=== PATIENT | female | born 1960 | race Caucasian/White ===

== ENCOUNTER 2018-06-01 12:30 | Inpatient (IN) ==
[2018-06-01] MEDS ORDERED: Sod Chloride 0.9% Inj 1,000 ML IV.SIG ONE ×2 (13:34→15:48)
[2018-06-01] MEDS ORDERED: Ketorolac Inj 30 MG/ML (IVP) Vial IV.PUSH ONE (13:39)
--- NOTE | 2018-06-01 13:39 | ED ---
HPI General Chief complaint: Nausea/Vomiting/Diarrhea Stated complaint: vomiting/back pain/headache Source: patient Mode of arrival: ambulatory Limitations: no limitations History of Present Illness HPI narrative: 58yo F with PMH of DM, HTN presents to the ED with c/o left sided back pain radiating to left flank region for 3 days. Said she has been nauseous but did not vomit until yesterday. +Nonbloody diarrhea today. +Chills /tactile fever. Denies any chest pain, sob, dysuria, hematuria, fall, focal weakness or numbness. Related Data Home Medications Medication Instructions Recorded Confirmed atenolol 25 mg PO DAILY 06/01/18 06/01/18 citalopram 06/01/18 metformin 500 mg PO DAILY 06/01/18 06/01/18 Allergies Allergy/AdvReac Type Severity Reaction Status Date / Time No Known Allergies Allergy Unverified 06/01/18 12:37 Review of Systems ROS: all other systems reviewed are negative FOR[facility]LY [facility] Medical History Medical History Deep vein thrombosis (Acute) Diabetes (Acute) Dyslipidemia (Acute) Hypertension (Acute) Major depressive disorder (Acute) Surgical History Surgical History H/O tubal ligation (Acute) Family History Family History Other Hypertension Social History Social History Substance History: No History of Abuse Second Hand Smoke Exposure: No Smoking Status: Current every day smoker Tobacco Type: Cigarettes How Often Do You Have a Drink Containing Alcohol: Monthly or less Recent Travel in [facility] within the Last 8 Weeks: No Recent Out of Country Travel within the Last 8 Weeks: No Immunization History Tetanus Immunization: Unsure Hx Influenza Vaccine This Season: No Exam Narrative Exam Narrative: GENERAL: 58yo F in mild distress. SKIN: Focused skin assessment warm/dry. HEAD: Atraumatic. Normocephalic. EYES: Pupils equal and round. No scleral icterus. No injection or drainage. ENT: No nasal bleeding or discharge. Mucous membranes pink and moist. NECK: Trachea midline. No JVD. CARDIOVASCULAR: Regular rate and rhythm. No murmur appreciated. RESPIRATORY: No accessory muscle use. Clear to auscultation. Breath sounds equal bilaterally. GASTROINTESTINAL: Abdomen soft, non-tender, nondistended in all quadrant. Mild ttp left flank. No rebound tenderness or guarding. BACK: no midline thoracic or lumbar ttp. No CVA tenderness bilaterally. +TTP left paraspinal L4-5. MUSCULOSKELETAL: No obvious deformities. No clubbing. No cyanosis. No edema. NEUROLOGICAL: Awake and alert. No obvious cranial nerve deficits. Motor grossly within normal limits. Normal speech. PSYCHIATRIC: Appropriate mood and affect; insight and judgment normal. Course Initial Documented Vital Signs Temperature 99.9 F H 06/01/18 12:33 Pulse Rate 65 06/01/18 12:33 Respiratory Rate 18 06/01/18 12:33 Blood Pressure 132/59 L 06/01/18 12:33 Pulse Oximetry 98 06/01/18 12:33 Last Documented Vital Signs Temperature 98.7 F 06/02/18 04:00 Pulse Rate 91 H 06/02/18 04:00 Respiratory Rate 20 06/02/18 04:00 Blood Pressure 154/72 H 06/02/18 04:00 Pulse Oximetry 96 06/02/18 04:00 Medical Decision Making MDM Narrative Medical decision making narrative: 58yo F with nausea, vomiting, diarrhea as well as left back pain. Labs reviewed, no leukocytosis. Neutrophil 92.7%. H/ H normal. Bilirubin elevated at 1.9, likely from dehydration. Mild elevation or glucose at 217. BUN elevated at 25. Creatinine is elevated at 3.0. LFTs low. UA showed large blood. WBC 51-189. Pt given ceftriaxone. CT a/p showed slightly less than 2cm stone in left UVJ with moderate left hydronephrosis. Discussed with Dr. Olivares and accepted to his service for infected stone with obstructive uropathy and ANNE. Medical Screen Exam Complete: Yes Emergency Medical Condition: Yes Differential Diagnosis Differential Diagnosis: Musculoskeletal pain vs. nephrolithiasis vs. pyelonephritis vs. gastroenteritis Lab Data Result diagrams: 06/01/18 13:40 06/01/18 13:40 Lab Results 06/01/18 06/01/18 06/01/18 Range/Units 13:40 13:40 13:40 CBC w Diff Auto diff final WBC 5.9 (4.0-11.0) th/mm3 RBC 4.09 (4.00-5.30) mil/mm3 Hgb 12.5 (11.6-15.3) gm/dL Hct 37.2 (35.0-46.0) % MCV 91.0 (80.0-100.0) fL MCH 30.6 (27.0-34.0) pg MCHC 33.6 (32.0-36.0) % RDW 13.0 (11.6-17.2) % Plt Count 213 (150-450) th/mm3 MPV 8.3 (7.0-11.0) fL Neut % (Auto) 92.7 H (16.0-70.0) % Lymph % (Auto) 5.0 L (9.0-44.0) % [place] % (Auto) 0.7 (0.0-8.0) % Eos % (Auto) 0.1 (0.0-4.0) % Baso % (Auto) 1.5 (0.0-2.0) % Neut # (Auto) 5.5 (1.8-7.7) th/mm3 Lymph # (Auto) 0.3 L (1.0-4.8) th/mm3 [place] # (Auto) 0.0 (0.0-0.9) th/mm3 Eos # (Auto) 0.0 (0.0-0.4) th/mm3 Baso # (Auto) 0.1 (0.0-0.2) th/mm3 WBC Differential . Differential Comment . Sodium 134 L (136-145) meq/L Potassium 3.5 (3.5-5.1) meq/L Chloride 101 (98-107) meq/L Carbon Dioxide 19.4 L (21.0-32.0) meq/L Anion Gap 14 (5-15) meq/L BUN 25 H (7-18) mg/dL Creatinine 3.00 H (0.50-1.00) mg/dL Estimated GFR 16 L (>89) mL/min POC Glucose (68-110) mg/dl Random Glucose 217 H (74-106) mg/dL Calcium 9.1 (8.5-10.1) mg/dL Total Bilirubin 1.9 H (0.2-1.0) mg/dL AST 7 L (15-37) U/L ALT 9 L (10-53) U/L Alkaline Phosphatase 94 (45-117) U/L Total Protein 8.0 (6.4-8.2) g/dL Albumin 2.9 L (3.4-5.0) g/dL Lipase 91 (73-393) U/L Ur Collection Type Clean catch Urine Color Yellow (Yellw/Straw) Urine Clarity Cloudy H (Clear) Urine pH 6.0 (5.0-8.5) Ur Specific [place] 1.025 (1.002-1.035) Urine Protein 100 H (Neg-Trace) mg/dL Urine Glucose (UA) Negative (Negative) mg/dL Urine Ketones Trace H (Negative) mg/dL Urine Occult Blood Large H (Negative) Urine Nitrate Negative (Negative) Urine Bilirubin Negative (Negative) Urine Urobilinogen 4.0 H (Less than 2) mg/dL Ur Leukocyte Esterase Large H (Negative) Urine RBC 15-50 H (0-3) /hpf Urine WBC 51-189 H (0-5) /hpf Ur Squamous Epith Cells 6-10 H (0-5) /hpf Urine Bacteria Moderate H (None) /hpf Micro UA Comment Culture indicated Urine Culture Comments Culture indicated 06/01/18 Range/Units 20:16 CBC w Diff WBC (4.0-11.0) th/mm3 RBC (4.00-5.30) mil/mm3 Hgb (11.6-15.3) gm/dL Hct (35.0-46.0) % MCV (80.0-100.0) fL MCH (27.0-34.0) pg MCHC (32.0-36.0) % RDW (11.6-17.2) % Plt Count (150-450) th/mm3 MPV (7.0-11.0) fL Neut % (Auto) (16.0-70.0) % Lymph % (Auto) (9.0-44.0) % [place] % (Auto) (0.0-8.0) % Eos % (Auto) (0.0-4.0) % Baso % (Auto) (0.0-2.0) % Neut # (Auto) (1.8-7.7) th/mm3 Lymph # (Auto) (1.0-4.8) th/mm3 [place] # (Auto) (0.0-0.9) th/mm3 Eos # (Auto) (0.0-0.4) th/mm3 Baso # (Auto) (0.0-0.2) th/mm3 WBC Differential Differential Comment Sodium (136-145) meq/L Potassium (3.5-5.1) meq/L Chloride (98-107) meq/L Carbon Dioxide (21.0-32.0) meq/L Anion Gap (5-15) meq/L BUN (7-18) mg/dL Creatinine (0.50-1.00) mg/dL Estimated GFR (>89) mL/min POC Glucose 198 H (68-110) mg/dl Random Glucose (74-106) mg/dL Calcium (8.5-10.1) mg/dL Total Bilirubin (0.2-1.0) mg/dL AST (15-37) U/L ALT (10-53) U/L Alkaline Phosphatase (45-117) U/L Total Protein (6.4-8.2) g/dL Albumin (3.4-5.0) g/dL Lipase (73-393) U/L Ur Collection Type Urine Color (Yellw/Straw) Urine Clarity (Clear) Urine pH (5.0-8.5) Ur Specific [place] (1.002-1.035) Urine Protein (Neg-Trace) mg/dL Urine Glucose (UA) (Negative) mg/dL Urine Ketones (Negative) mg/dL Urine Occult Blood (Negative) Urine Nitrate (Negative) Urine Bilirubin (Negative) Urine Urobilinogen (Less than 2) mg/dL Ur Leukocyte Esterase (Negative) Urine RBC (0-3) /hpf Urine WBC (0-5) /hpf Ur Squamous Epith Cells (0-5) /hpf Urine Bacteria (None) /hpf Micro UA Comment Urine Culture Comments Imaging Data Radiologist's impression: Abdomen/Pelvis CT 06/01/18 13:33 CONCLUSION: Slightly less than 2 cm stone in the left ureteropelvic junction with moderate left hydronephrosis. Smaller stones elsewhere in the left kidney. Discharge Plan Discharge Disposition Patient Disposition: 30 Still Patient Discharge Details Diagnosis: Obstruction, uropathy Physicians Team ED Provider: Chery Cortez Attending Provider: Cuco Hadley Other Providers: Darnell Hastings Status ED Status: Left Department Discharge Information Discharge Date/Time: 06/01/18 17:53
[2018-06-01 13:46] LABS: Baso # (Auto) 0.1 th/mm3 (0.0-0.2); Baso % (Auto) 1.5 % (0.0-2.0); Clarity,Urine Cloudy (Clear); Color,Urine Yellow (Yellw/Straw); Eos % (Auto) 0.1 % (0.0-4.0); Glucose,Urine (UA) Negative (Negative); Hematocrit 37.2 % (35.0-46.0); Hemoglobin 12.5 gm/dL (11.6-15.3); Leukocyte Esterase,Urine Large (Negative); Lymph # (Auto) 0.3 th/mm3 (1.0-4.8); Mean Corpuscular HGB Conc 33.6 % (32.0-36.0); Mean Corpuscular Hemoglobin 30.6 pg (27.0-34.0); Mean Platelet Volume 8.3 fL (7.0-11.0); Mono % (Auto) 0.7 % (0.0-8.0); Neut # (Auto) 5.5 th/mm3 (1.8-7.7); Neut % (Auto) 92.7 % (16.0-70.0); Nitrite,Urine Negative (Negative); Platelet Count 213 th/mm3 (150-450); Red Blood Count 4.09 mil/mm3 (4.00-5.30); Specific Gravity,Urine 1.025 (1.002-1.035); White Blood Count 5.9 th/mm3 (4.0-11.0)
[2018-06-01 13:55] LABS: Chloride 101 meq/L (98-107); Potassium 3.5 meq/L (3.5-5.1); Sodium 134 meq/L (136-145)
[2018-06-01 13:58] LABS: Calcium 9.1 mg/dL (8.5-10.1)
[2018-06-01 13:59] LABS: Albumin 2.9 g/dL (3.4-5.0); Anion Gap 14 meq/L (5-15); Blood Urea Nitrogen 25 mg/dL (7-18); Carbon Dioxide 19.4 meq/L (21.0-32.0); Glucose,Random 217 mg/dL (74-106); Lipase 91 U/L (73-393)
[2018-06-01 14:01] LABS: Bilirubin,Urine Negative (Negative)
[2018-06-01 14:02] LABS: Alanine Aminotransferase 9 U/L (10-53); Aspartate Aminotransferase 7 U/L (15-37); Glomerular Filtration Rate 16 mL/min (>89)
[2018-06-01 14:03] LABS: Bacteria,Urine Moderate /hpf; WBC,Urine 51-189 /hpf (0-5)
[2018-06-01 14:05] LABS: Alkaline Phosphatase 94 U/L (45-117)
--- NOTE | 2018-06-01 14:23 | CT ---
EXAM DATE: 06/01/2018 2:17 PM EDT AGE/SEX: 58 years / Female INDICATIONS: Left flank pain. Nausea. Diarrhea. CLINICAL DATA: This is the patient's initial encounter. Patient reports that signs and symptoms have been present for 3 days and indicates a pain score of 7/10. MEDICAL/SURGICAL HISTORY: Diabetes. Hypertension. Tubal ligation. RADIATION DOSE: 12.55 CTDI (mGy) COMPARISON: No prior exams available for comparison. TECHNIQUE: Multiple contiguous axial images were obtained through the abdomen. Images were obtained using multiple row detector helical technique. Using automated exposure control and adjustment of the mA and/or kV according to patient size, radiation dose was kept as low as reasonably achievable to o btain optimal diagnostic quality images. DICOM format image data is available electronically for rev iew and comparison. FINDINGS: Lower Lungs: The visualized lower lungs are clear. Liver: Visualized portions are grossly unremarkable. Spleen: Visualized portions are grossly unremarkable Pancreas: Unremarkable without mass or calcification. Kidneys: There is a slightly less than 2 cm oblong stone in the left ureteropelvic junction region p roducing moderate left hydronephrosis. There are additionally smaller nonobstructing calculi in the l ateral midpole and posterior lower pole collecting systems. The contralateral right kidney is unremar kable. Adrenal Glands: Unremarkable. Aorta: Slight dilatation of the distal abdominal aorta to a diameter 3.4 cm. Patchy atherosclerotic calcifications in aorta and iliacs. Previous stenting of the left iliac system. Bowel/Mesentery: Distal colonic diverticula. No abnormal dilatation of bowel. No focal wall thickeni ng or inflammatory changes. Appendix is seen and appears normal Abdominal Wall: Intact. Retroperitoneum: No evidence of adenopathy in the retrocrural, para-aortic, or deep pelvic regions. Bladder: Contours are smooth. Reproductive Organs: No abnormal masses or calcifications seen. Inguinal: The inguinal region is unremarkable without evidence of adenopathy. Bony Structures: Unremarkable. CONCLUSION: Slightly less than 2 cm stone in the left ureteropelvic junction with moderate left hydronephrosis. S maller stones elsewhere in the left kidney. Electronically signed by: Piyush Winters MD 06/01/2018 2:21 PM EDT
--- NOTE | 2018-06-01 18:28 | P.HP ---
History of Present Illness Primary Care Physician: Dania Gutierrez History of Present Illness: 58-year-old female with a history of hypertension, type 2 diabetes, DVT, dyslipidemia, major depressive disorder presents to the ER after left flank pain , nausea, vomiting became so severe she was unable to tolerate the pain at home. She reports having vague left lower back pain occurring intermittently over the last month. 2 weeks ago she had an episode of nausea and vomiting while on vacation in [place], she went to the ER but they told her it was dehydration and sent her home without checking a urinalysis. 3 days ago she developed onset of fever and worsening of her low back pain. It progressively became worse which led to today's visit to the ER. In the ER workup reveals a 1.8 cm stone in the ureter ureteropelvic junction near the left kidney. She denies any chest pain, shortness of breath, palpitations. She denies any rashes , ecchymosis, jaundice. Inpatient Certification: I certify that the inpatient services were ordered in accordance with Medicare regulations governing the order. This includes certification that hospital inpatient services are reasonable and necessary and in the case of services not specified as inpatient-only under 42 CFR 419.22(n), that they are appropriately provided as inpatient services in accordance to with the 2-midnight benchmark under 43 CFR 412.3(e) Review of Systems All other systems reviewed negative except as stated in HPI PMFSH - History History Provided By: Patient - Medical History Medical History: Medical History (Last Updated 06/01/18 @ 18:23 by Darnell Olivares MD) Deep vein thrombosis Diabetes Dyslipidemia Hypertension Major depressive disorder - Surgical History Surgical History: Surgical History (Last Updated 06/01/18 @ 12:42 by Yudith Salgado RN) H/O tubal ligation - Family History Family History: Family History (Last Updated 06/01/18 @ 18:23 by Darnell Olivares MD) Other Hypertension - Tobacco History Tobacco Use In Past 30 Days: Yes Smoking Status: Current every day smoker Tobacco Type: Cigarettes - Alcohol History How Often Do You Have a Drink Containing Alcohol: Never - Substance Use History Substance History: No History of Abuse - Travel History Recent Travel in the [place] Within the Last 8 Weeks: No Recent Travel Out of the Country Within the Last 8 Weeks: No - Immunization History Tetanus Immunization: Unsure Hx Influenza Vaccine This Season: No Medications and Allergies Active Medications: Active Medications Sodium Chloride (Ns Flush) 2 ml IV.FLUSH PRN PRN PRN Reason: FLUSH AFTER USING IV ACCESS Allergies Allergy/AdvReac Type Severity Reaction Status Date / Time No Known Allergies Allergy Unverified 06/01/18 12:37 Home Medications Medication Instructions Recorded Confirmed Type atenolol 25 mg PO DAILY 06/01/18 06/01/18 History citalopram 06/01/18 History metformin 500 mg PO DAILY 06/01/18 06/01/18 History Exam Vital signs: Vital Signs 06/01/18 12:33 06/01/18 13:17 06/01/18 15:12 Temperature 99.9 F H Pulse Rate 65 71 84 Respiratory Rate 18 20 20 Blood Pressure 132/59 L 114/60 102/51 L Pulse Oximetry 98 96 96 Intake & Output 05/31/18 06/01/18 06/01/18 18:59 06:59 18:59 Intake Total 1999 Balance 1999 Weight 75.5 kg Intake: IV 1999 NS Inj 1,000 ML @ Wide Open IV. 1999 SIG BOLUS ONE Rx#:[id number] Narrative: GENERAL: AAOx3, no acute distress, adequate nutrition, obese SKIN: Warm and dry, no rashes. HEAD: Atraumatic. Normocephalic. EYES: Pupils equal, round, reactive to light. No scleral icterus. No injection or drainage. ENT: No nasal bleeding or discharge. Moist mucous membranes. Nonerythematous oropharynx. NECK: Trachea midline. No JVD. Thyroid size within normal limits. CARDIOVASCULAR: Regular rate and rhythm. No murmur, no gallops, no rubs. RESPIRATORY: Clear and equal to auscultation bilaterally. No crackles, no wheezes. No accessory muscle use. GASTROINTESTINAL: Abdomen soft, non-tender, nondistended, normal active bowel sounds. Hepatic and splenic margins not palpable. MUSCULOSKELETAL: Left CVA tenderness. Extremities without clubbing or cyanosis. No obvious deformities. No edema. NEUROLOGICAL: Awake and alert. No obvious cranial nerve deficits. Motor grossly within normal limits. No focal deficits. Five out of 5 muscle strength in the arms and legs. Normal speech. PSYCHIATRIC: Appropriate mood and affect; insight and judgment normal. Results - Labs CBC & Chem 7: 06/01/18 13:40 06/01/18 13:40 Labs: Laboratory Results - last 24 hr 06/01/18 06/01/18 06/01/18 13:40 13:40 13:40 CBC w Diff Auto diff final WBC 5.9 RBC 4.09 Hgb 12.5 Hct 37.2 MCV 91.0 MCH 30.6 MCHC 33.6 RDW 13.0 Plt Count 213 MPV 8.3 Neut % (Auto) 92.7 H Lymph % (Auto) 5.0 L [place] % (Auto) 0.7 Eos % (Auto) 0.1 Baso % (Auto) 1.5 Neut # (Auto) 5.5 Lymph # (Auto) 0.3 L [place] # (Auto) 0.0 Eos # (Auto) 0.0 Baso # (Auto) 0.1 WBC Differential . Differential Comment . Sodium 134 L Potassium 3.5 Chloride 101 Carbon Dioxide 19.4 L Anion Gap 14 BUN 25 H Creatinine 3.00 H Estimated GFR 16 L Random Glucose 217 H Calcium 9.1 Total Bilirubin 1.9 H AST 7 L ALT 9 L Alkaline Phosphatase 94 Total Protein 8.0 Albumin 2.9 L Lipase 91 Ur Collection Type Clean catch Urine Color Yellow Urine Clarity Cloudy H Urine pH 6.0 Ur Specific [place] 1.025 Urine Protein 100 H Urine Glucose (UA) Negative Urine Ketones Trace H Urine Occult Blood Large H Urine Nitrate Negative Urine Bilirubin Negative Urine Urobilinogen 4.0 H Ur Leukocyte Esterase Large H Urine RBC 15-50 H Urine WBC 51-189 H Ur Squamous Epith Cells 6-10 H Urine Bacteria Moderate H Micro UA Comment Culture indicated Urine Culture Comments Culture indicated - Imaging Impressions Abdomen/Pelvis CT 06/01/18 13:33 CONCLUSION: Slightly less than 2 cm stone in the left ureteropelvic junction with moderate left hydronephrosis. Smaller stones elsewhere in the left kidney. Caprini VTE Risk Assessment Caprini VTE Risk Assessment: Moderate/High Risk (score >= 2) Caprini Risk Assessment Model: Point Value = 1 Point Value = 2 Point Value = 3 Point Value = 5 Age 41-60 Minor surgery BMI > 25 kg/m2 Swollen legs Varicose veins or History of unexplained or recurrent spontaneous Oral contraceptives or hormone replacement Sepsis (< 1 month) Serious lung disease, including pneumonia (< 1 month) Abnormal pulmonary function Acute myocardial infarction Congestive heart failure (< 1 month) History of inflammatory bowel disease Medical patient at bed rest Age 61-74 Arthroscopic surgery Major open surgery (> 45 min) Laparoscopic surgery (> 45 min) Malignancy Confined to bed (> 72 hours) Immobilizing plaster cast Central venous access Age >= 75 History of VTE Family history of VTE Factor V Leiden Prothrombin [id number] Lupus anticoagulant Anticardiolipin antibodies Elevated serum homocysteine Heparin-induced thrombocytopenia Other congenital or acquired thrombophilia Stroke (< 1 month) Elective arthroplasty Hip, pelvis, or leg fracture Acute spinal cord injury (< 1 month) Prophylaxis Regimen: Total Risk Factor Score Risk Level Prophylaxis Regimen 0-1 Low Early ambulation 2 Moderate Order ONE of the following: *Sequential Compression Device (SCD) *Heparin 5000 units SQ BID 3-4 Higher Order ONE of the following medications: *Heparin 5000 units SQ TID *Enoxaparin/Lovenox 40 mg SQ daily (WT < 150 kg, CrCl > 30 mL/min) *Enoxaparin/Lovenox 30 mg SQ daily (WT < 150 kg, CrCl > 10-29 mL/min) *Enoxaparin/Lovenox 30 mg SQ BID (WT < 150 kg, CrCl > 30 mL/min) AND/OR *Sequential Compression Device (SCD) 5 or more Highest Order ONE of the following medications: *Heparin 5000 units SQ TID (Preferred with Epidurals) *Enoxaparin/Lovenox 40 mg SQ daily (WT < 150 kg, CrCl > 30 mL/min) *Enoxaparin/Lovenox 30 mg SQ daily (WT < 150 kg, CrCl > 10-29 mL/min) *Enoxaparin/Lovenox 30 mg SQ BID (WT < 150 kg, CrCl > 30 mL/min) AND *Sequential Compression Device (SCD) Assessment and Plan - Plan Nephrolithiasis with hydroureter and ANNE 1.8 cm obstructing stone in the left ureteropelvic junction The size of the stone will require intervention, possible nephrostomy tubes if creatinine worsens Patient is being sent to the main hospital due to reduced availability of intervention [place] Continue IV fluids and pain control Appreciate nephrology consult Type 2 diabetes Accu-Cheks with sliding scale insulin coverage Diabetic diet History of deep vein thrombosis Patient takes no blood thinners for this She had a stent placed in her left leg that apparently address this in the past h/o hypertension Control pain primarily Continue home medications DVT prophylaxis SCD hose, chemoprophylaxis held due to gross hematuria
[2018-06-01] MEDS ORDERED: Acetaminophen 325 MG Tablet PO PRN (20:00)
[2018-06-01] MEDS ORDERED: Morphine Inj 4 MG/ML Vial IV.PUSH PRN (20:00)
[2018-06-01] MEDS: Ketorolac Inj 30 MG/ML (IVP) Vial IV.PUSH PRN (21:20)
[2018-06-02] MEDS: Ketorolac Inj 30 MG/ML (IVP) Vial IV.PUSH PRN ×2 (05:51→13:44)
[2018-06-02 09:39] LABS: Hematocrit 31.5 % (35.0-46.0); Hemoglobin 10.5 gm/dL (11.6-15.3); Mean Corpuscular HGB Conc 33.5 % (32.0-36.0); Mean Corpuscular Hemoglobin 30.4 pg (27.0-34.0); Mean Corpuscular Volume 90.9 fL (80.0-100.0); Mean Platelet Volume 8.5 fL (7.0-11.0); Platelet Count 162 th/mm3 (150-450); Red Blood Count 3.46 mil/mm3 (4.00-5.30); Red Cell Distribution Width 13.9 % (11.6-17.2); White Blood Count 14.7 th/mm3 (4.0-11.0)
[2018-06-02 09:51] LABS: Calcium 8.2 mg/dL (8.5-10.1); Carbon Dioxide 20.6 meq/L (21.0-32.0); Potassium 3.9 meq/L (3.5-5.1)
--- NOTE | 2018-06-02 11:25 | P.CONURO ---
History of Present Illness Service: urology Consult date: 06/02/18 Reason for Consult: nephrolithiasis Primary Care Provider: Dania Gutierrez Chief Complaint: nephrolithiasis History of Present Illness: 58yo female seen in consultation for large left renale stone. Patient began to experience left flank pain yesterday morning that progressively worsened. She reported to the ED where a CT scan identified an approx 2cm left UPJ stone. She has never had kidney stones in the past. She reports subjective fevers at home and spiked a fever last night. Currently reports chills. No N/V. Pain is moderate at this time but controlled. Review of Systems All other systems reviewed negative except as stated in HPI Constitutional: Reports chills, Reports fever(s) Eyes: Denies blurry vision Ears, Nose, Mouth, and Throat: Denies abnormal hearing Cardiovascular: Denies chest pain Respiratory: Denies cough Gastrointestinal: Reports abdominal pain Musculoskeletal: Reports back pain Skin/Breast: Denies rash Hematologic/Lymphatic: Denies easy bleeding Allergic/Immunologic: Denies hives PMFSH - History History Provided By: Patient - Medical History Medical History: Medical History (Last Updated 06/01/18 @ 18:23 by Darnell Olivares MD) Deep vein thrombosis Diabetes Dyslipidemia Hypertension Major depressive disorder - Surgical History Surgical History: Surgical History (Last Updated 06/01/18 @ 12:42 by Yudith Salgado RN) H/O tubal ligation - Family History Family History: Family History (Last Updated 06/01/18 @ 18:23 by Darnell Olivares MD) Other Hypertension - Tobacco History Second Hand Smoke Exposure: No Tobacco Use In Past 30 Days: Yes Smoking Status: Current every day smoker Tobacco Type: Cigarettes - Alcohol History How Often Do You Have a Drink Containing Alcohol: Monthly or less - Substance Use History Substance History: No History of Abuse - Travel History Recent Travel in the [place] Within the Last 8 Weeks: No Recent Travel Out of the Country Within the Last 8 Weeks: No - Immunization History Tetanus Immunization: Unsure Hx Influenza Vaccine This Season: No Medications and Allergies Active Medications: Active Medications Acetaminophen (Tylenol) 650 mg PO Q4H PRN PRN Reason: Temp > 100.4 Last Admin: 06/02/18 04:10 Dose: 650 mg Al Hydroxide/Mg Hydroxide (Milk Of Magnesia Liq) 30 ml PO Q12H PRN PRN Reason: Mild Constipation Ceftriaxone Sodium 1,000 mg/ (Sodium Chloride) 100 mls @ 200 mls/hr IV.SIG Q24H RIHSI Last Infusion: 06/01/18 21:44 Dose: Infused Ketorolac Tromethamine (Toradol Inj) 15 mg IV.PUSH Q6H PRN PRN Reason: PAIN SCALE 6 TO 10 Last Admin: 06/02/18 05:51 Dose: 15 mg Morphine Sulfate (Morphine Inj) 4 mg IV.PUSH Q4H PRN PRN Reason: BREAKTHROUGH PAIN Sodium Chloride (Ns Flush) 2 ml IV.FLUSH PRN PRN PRN Reason: FLUSH AFTER USING IV ACCESS Allergies Allergy/AdvReac Type Severity Reaction Status Date / Time No Known Allergies Allergy Unverified 06/01/18 12:37 Home Medications Medication Instructions Recorded Confirmed Type atenolol 25 mg PO DAILY 06/01/18 06/01/18 History citalopram 06/01/18 History metformin 500 mg PO DAILY 06/01/18 06/01/18 History Physical Exam Vital Signs - 24 hr 06/01/18 12:33 06/01/18 13:17 06/01/18 15:12 Temperature 99.9 F H Pulse Rate 65 71 84 Respiratory Rate 18 20 20 Blood Pressure 132/59 L 114/60 102/51 L Pulse Oximetry 98 96 96 06/01/18 20:00 06/01/18 23:32 06/02/18 00:00 Temperature 98.1 F 99.1 F Pulse Rate 82 77 Respiratory Rate 20 18 20 Blood Pressure 109/57 L 113/58 L Pulse Oximetry 96 95 06/02/18 04:00 Temperature 98.7 F Pulse Rate 91 H Respiratory Rate 20 Blood Pressure 154/72 H Pulse Oximetry 96 Physical Exam: GENERAL: This is a well-nourished, well-developed patient, in no apparent distress. SKIN: No rashes, ecchymoses or lesions. Cool and dry. HEAD: Atraumatic. Normocephalic. EYES: Extraocular motions intact. No scleral icterus. No injection or drainage. ENT: Nose without bleeding, purulent drainage. Airway patent. NECK: Trachea midline. No JVD or lymphadenopathy. CARDIOVASCULAR: Normal pulse RESPIRATORY: Nonlabored GASTROINTESTINAL: Abdomen soft, non-tender, nondistended. MUSCULOSKELETAL: Extremities without clubbing, cyanosis, or edema. NEUROLOGICAL: Awake and alert. Motor and sensory grossly within normal limits. Normal speech. Laboratory Results - last 24 hr 06/01/18 06/01/18 06/01/18 13:40 13:40 13:40 CBC w Diff Auto diff final WBC 5.9 RBC 4.09 Hgb 12.5 Hct 37.2 MCV 91.0 MCH 30.6 MCHC 33.6 RDW 13.0 Plt Count 213 MPV 8.3 Neut % (Auto) 92.7 H Lymph % (Auto) 5.0 L [place] % (Auto) 0.7 Eos % (Auto) 0.1 Baso % (Auto) 1.5 Neut # (Auto) 5.5 Lymph # (Auto) 0.3 L [place] # (Auto) 0.0 Eos # (Auto) 0.0 Baso # (Auto) 0.1 WBC Differential . Differential Comment . Sodium 134 L Potassium 3.5 Chloride 101 Carbon Dioxide 19.4 L Anion Gap 14 BUN 25 H Creatinine 3.00 H Estimated GFR 16 L POC Glucose Random Glucose 217 H Calcium 9.1 Total Bilirubin 1.9 H AST 7 L ALT 9 L Alkaline Phosphatase 94 Total Protein 8.0 Albumin 2.9 L Lipase 91 Ur Collection Type Clean catch Urine Color Yellow Urine Clarity Cloudy H Urine pH 6.0 Ur Specific [place] 1.025 Urine Protein 100 H Urine Glucose (UA) Negative Urine Ketones Trace H Urine Occult Blood Large H Urine Nitrate Negative Urine Bilirubin Negative Urine Urobilinogen 4.0 H Ur Leukocyte Esterase Large H Urine RBC 15-50 H Urine WBC 51-189 H Ur Squamous Epith Cells 6-10 H Urine Bacteria Moderate H Micro UA Comment Culture indicated Urine Culture Comments Culture indicated 06/01/18 06/02/18 06/02/18 20:16 07:45 08:54 CBC w Diff WBC 14.7 H D RBC 3.46 L Hgb 10.5 L D Hct 31.5 L MCV 90.9 MCH 30.4 MCHC 33.5 RDW 13.9 Plt Count 162 MPV 8.5 Neut % (Auto) Lymph % (Auto) [place] % (Auto) Eos % (Auto) Baso % (Auto) Neut # (Auto) Lymph # (Auto) [place] # (Auto) Eos # (Auto) Baso # (Auto) WBC Differential Differential Comment Sodium Potassium Chloride Carbon Dioxide Anion Gap BUN Creatinine Estimated GFR POC Glucose 198 H 136 H Random Glucose Calcium Total Bilirubin AST ALT Alkaline Phosphatase Total Protein Albumin Lipase Ur Collection Type Urine Color Urine Clarity Urine pH Ur Specific [place] Urine Protein Urine Glucose (UA) Urine Ketones Urine Occult Blood Urine Nitrate Urine Bilirubin Urine Urobilinogen Ur Leukocyte Esterase Urine RBC Urine WBC Ur Squamous Epith Cells Urine Bacteria Micro UA Comment Urine Culture Comments 06/02/18 08:54 CBC w Diff WBC RBC Hgb Hct MCV MCH MCHC RDW Plt Count MPV Neut % (Auto) Lymph % (Auto) [place] % (Auto) Eos % (Auto) Baso % (Auto) Neut # (Auto) Lymph # (Auto) [place] # (Auto) Eos # (Auto) Baso # (Auto) WBC Differential Differential Comment Sodium 139 Potassium 3.9 Chloride 109 H D Carbon Dioxide 20.6 L Anion Gap 9 BUN 34 H Creatinine 2.83 H Estimated GFR 17 L POC Glucose Random Glucose 120 H Calcium 8.2 L D Total Bilirubin AST ALT Alkaline Phosphatase Total Protein Albumin Lipase Ur Collection Type Urine Color Urine Clarity Urine pH Ur Specific [place] Urine Protein Urine Glucose (UA) Urine Ketones Urine Occult Blood Urine Nitrate Urine Bilirubin Urine Urobilinogen Ur Leukocyte Esterase Urine RBC Urine WBC Ur Squamous Epith Cells Urine Bacteria Micro UA Comment Urine Culture Comments Result Diagrams: 06/02/18 08:54 06/02/18 08:54 Imaging: ITS Impressions Abdomen/Pelvis CT 06/01/18 13:33 CONCLUSION: Slightly less than 2 cm stone in the left ureteropelvic junction with moderate left hydronephrosis. Smaller stones elsewhere in the left kidney. Assessment and Plan - Assessment (1) Obstruction, uropathy Code(s): N13.9 - Obstructive and reflux uropathy, unspecified Status: Acute - Plan -Given her large stone burden and increasing WBC and chills with fever spikes, immediate intervention is indicated. However the patient did have something to drink this morning. -We discussed Nephrostomy tube placement vs ureteral stent. Given the size and location of the stone, she would be a candidate for future PCNL via nephrostomy tube, however at this time the patient would like to avoid this and try for stent first. Patient does understand that if ureteral stent is unsuccessful she would then require nephrostomy tube placement -Maintain NPO -Plan for Cysto, left ureteral stent placement today
[2018-06-02] MEDS ORDERED: Dextrose 50% in Water 50 ML Vial IV.PUSH PRN (11:39)
[2018-06-02] MEDS ORDERED: Sod Chloride 0.9% Inj 1,000 ML IV.CONT SCH (11:45)
--- NOTE | 2018-06-02 11:48 | P.PN ---
Subjective Interval history: Follow-up obstruction, uropathy June 02, 2018-patient seen and examined; she spiked a Temp overnight. Complains of flank pain this AM. Although patient is supposed to be NPO however she did take some PO this Am Physical Exam Vital signs: Vital Signs 06/01/18 12:33 06/01/18 13:17 06/01/18 15:12 Temperature 99.9 F H Pulse Rate 65 71 84 Respiratory Rate 18 20 20 Blood Pressure 132/59 L 114/60 102/51 L Pulse Oximetry 98 96 96 06/01/18 20:00 06/01/18 23:32 06/02/18 00:00 Temperature 98.1 F 99.1 F Pulse Rate 82 77 Respiratory Rate 20 18 20 Blood Pressure 109/57 L 113/58 L Pulse Oximetry 96 95 06/02/18 04:00 06/02/18 09:30 Temperature 98.7 F 97.5 F L Pulse Rate 91 H 70 Respiratory Rate 20 18 Blood Pressure 154/72 H 110/57 L Pulse Oximetry 96 96 Intake & Output 06/01/18 06/02/18 06/02/18 18:59 06:59 18:59 Intake Total 1999 340 / 340 Balance 1999 340 / 340 Weight 75.5 kg 81 kg Intake: IV 1999 100 / 100 NS Inj 1,000 ML @ Wide Open IV. 1999 SIG BOLUS ONE Rx#:[id number] Rocephin Inj 1,000 MG In NS Inj 100 / 100 100 ML @ 200 mls/hr IV.SIG Q24H RISHI Rx#:[id number] Oral 240 / 240 Other: # Voids 2 Weight On Admission 80.3 kg Narrative: GENERAL: NAD SKIN: Warm and dry. HEAD: Normocephalic. EYES: No scleral icterus. No injection or drainage. NECK: Supple, trachea midline. No JVD or lymphadenopathy. CARDIOVASCULAR: Regular rate and rhythm without murmurs, gallops, or rubs. RESPIRATORY: Breath sounds equal bilaterally. No accessory muscle use. GASTROINTESTINAL: Abdomen soft, non-tender, nondistended. MUSCULOSKELETAL: No cyanosis, or edema. BACK: Nontender without obvious deformity. + CVA tenderness. Results - Labs CBC & Chem 7: 06/02/18 08:54 06/02/18 08:54 Laboratory Results - last 24 hr 06/01/18 06/01/18 06/01/18 13:40 13:40 13:40 CBC w Diff Auto diff final WBC 5.9 RBC 4.09 Hgb 12.5 Hct 37.2 MCV 91.0 MCH 30.6 MCHC 33.6 RDW 13.0 Plt Count 213 MPV 8.3 Neut % (Auto) 92.7 H Lymph % (Auto) 5.0 L [place] % (Auto) 0.7 Eos % (Auto) 0.1 Baso % (Auto) 1.5 Neut # (Auto) 5.5 Lymph # (Auto) 0.3 L [place] # (Auto) 0.0 Eos # (Auto) 0.0 Baso # (Auto) 0.1 WBC Differential . Differential Comment . Sodium 134 L Potassium 3.5 Chloride 101 Carbon Dioxide 19.4 L Anion Gap 14 BUN 25 H Creatinine 3.00 H Estimated GFR 16 L POC Glucose Random Glucose 217 H Calcium 9.1 Total Bilirubin 1.9 H AST 7 L ALT 9 L Alkaline Phosphatase 94 Total Protein 8.0 Albumin 2.9 L Lipase 91 Ur Collection Type Clean catch Urine Color Yellow Urine Clarity Cloudy H Urine pH 6.0 Ur Specific [place] 1.025 Urine Protein 100 H Urine Glucose (UA) Negative Urine Ketones Trace H Urine Occult Blood Large H Urine Nitrate Negative Urine Bilirubin Negative Urine Urobilinogen 4.0 H Ur Leukocyte Esterase Large H Urine RBC 15-50 H Urine WBC 51-189 H Ur Squamous Epith Cells 6-10 H Urine Bacteria Moderate H Micro UA Comment Culture indicated Urine Culture Comments Culture indicated 06/01/18 06/02/18 06/02/18 20:16 07:45 08:54 CBC w Diff WBC 14.7 H D RBC 3.46 L Hgb 10.5 L D Hct 31.5 L MCV 90.9 MCH 30.4 MCHC 33.5 RDW 13.9 Plt Count 162 MPV 8.5 Neut % (Auto) Lymph % (Auto) [place] % (Auto) Eos % (Auto) Baso % (Auto) Neut # (Auto) Lymph # (Auto) [place] # (Auto) Eos # (Auto) Baso # (Auto) WBC Differential Differential Comment Sodium Potassium Chloride Carbon Dioxide Anion Gap BUN Creatinine Estimated GFR POC Glucose 198 H 136 H Random Glucose Calcium Total Bilirubin AST ALT Alkaline Phosphatase Total Protein Albumin Lipase Ur Collection Type Urine Color Urine Clarity Urine pH Ur Specific [place] Urine Protein Urine Glucose (UA) Urine Ketones Urine Occult Blood Urine Nitrate Urine Bilirubin Urine Urobilinogen Ur Leukocyte Esterase Urine RBC Urine WBC Ur Squamous Epith Cells Urine Bacteria Micro UA Comment Urine Culture Comments 06/02/18 08:54 CBC w Diff WBC RBC Hgb Hct MCV MCH MCHC RDW Plt Count MPV Neut % (Auto) Lymph % (Auto) [place] % (Auto) Eos % (Auto) Baso % (Auto) Neut # (Auto) Lymph # (Auto) [place] # (Auto) Eos # (Auto) Baso # (Auto) WBC Differential Differential Comment Sodium 139 Potassium 3.9 Chloride 109 H D Carbon Dioxide 20.6 L Anion Gap 9 BUN 34 H Creatinine 2.83 H Estimated GFR 17 L POC Glucose Random Glucose 120 H Calcium 8.2 L D Total Bilirubin AST ALT Alkaline Phosphatase Total Protein Albumin Lipase Ur Collection Type Urine Color Urine Clarity Urine pH Ur Specific [place] Urine Protein Urine Glucose (UA) Urine Ketones Urine Occult Blood Urine Nitrate Urine Bilirubin Urine Urobilinogen Ur Leukocyte Esterase Urine RBC Urine WBC Ur Squamous Epith Cells Urine Bacteria Micro UA Comment Urine Culture Comments - Imaging Impressions Abdomen/Pelvis CT 06/01/18 13:33 CONCLUSION: Slightly less than 2 cm stone in the left ureteropelvic junction with moderate left hydronephrosis. Smaller stones elsewhere in the left kidney. Assessment and Plan - Plan 58-year-old female with Nephrolithiasis with hydroureter and ANNE 1.8 cm obstructing stone in the left ureteropelvic junction Appreciate input from urology who plan for cystoscopy,Nephrostomy tube placement vs ureteral stent today June 02, 2018 Secondary to febrile episode and worsening white blood cell count, with start cefepime IV Acute kidney injury Post renal due to obstruction from kidney stone Urology consulted Start IV fluid hydration and monitor BUN and creatinine Type 2 diabetes Accu-Cheks with sliding scale insulin coverage Diabetic diet History of deep vein thrombosis Patient takes no blood thinners for this She had a stent placed in her left leg that apparently address this in the past h/o hypertension Control pain primarily Resume atenolol DVT prophylaxis SCD hose, chemoprophylaxis held due to gross hematuria
[2018-06-02] MEDS: Sod Chloride 0.9% Inj 1,000 ML IV.CONT SCH ×2 (12:00→20:49)
[2018-06-02] MEDS ORDERED: Lidocaine PF 1% Inj 5 ML Syringe INFILTRATN ONE (12:00)
[2018-06-02] MEDS ORDERED: Phenylephrine/NS 1000 MCG/10ML Syringe IV.PUSH ONE (12:00)
[2018-06-02] MEDS: Insulin NovoLOG Aspart Correctional Sugar Inj SQ SCH ×3 (12:20→21:00)
--- NOTE | 2018-06-02 20:28 | P.PNURO ---
Subjective Patient symptoms today: Successful left ureteral stent placement, 6x24JJ. Purulent material expressed upon stent placement. Continue abx. -Maintain razo catheter until tomorrow morning. May be removed in the a.m. -Patient may be discharged tomorrow if medically stable with home abx, Cipro x 5 days -Followup in Urology clinic in 1-2 weeks after discharge -Please call with questions Objective Vital Signs: Vital Signs 06/01/18 23:32 06/02/18 00:00 06/02/18 04:00 Temperature 99.1 F 98.7 F Pulse Rate 77 91 H Respiratory Rate 18 20 20 Blood Pressure 113/58 L 154/72 H Pulse Oximetry 95 96 06/02/18 08:00 06/02/18 09:30 06/02/18 11:51 Temperature 97.5 F L Pulse Rate 74 70 74 Respiratory Rate 18 Blood Pressure 110/57 L Pulse Oximetry 96 06/02/18 12:00 06/02/18 16:00 06/02/18 16:18 Temperature 98 F 98 F Pulse Rate 89 87 92 H Respiratory Rate 30 H 18 Blood Pressure 151/95 H 95/52 L Pulse Oximetry 94 L 94 L Intake & Output 06/02/18 06/02/18 06/03/18 06:59 18:59 06:59 Intake Total 340 / 340 100 / 100 Balance 340 / 340 100 / 100 Weight 81 kg Intake: IV 100 / 100 100 / 100 Maxipime Inj 2,000 MG In NS Inj 100 / 100 100 ML @ 200 mls/hr IV.SIG Q12H RISHI Rx#:[id number] Rocephin Inj 1,000 MG In NS Inj 100 / 100 100 ML @ 200 mls/hr IV.SIG Q24H RISHI Rx#:[id number] Oral 240 / 240 Other: # Voids 2 Weight On Admission 80.3 kg Result Diagrams: 06/02/18 08:54 06/02/18 08:54 Medications and IVs: Active Medications Generic Name Dose Route Start Last Admin Trade Name Freq PRN Reason Stop Dose Admin Acetaminophen 650 mg 06/01/18 20:00 06/02/18 04:10 Tylenol PO 650 mg Q4H PRN Administration Temp > 100.4 Al Hydroxide/Mg Hydroxide 30 ml 06/01/18 20:00 Milk Of Magnesia Liq PO Q12H PRN Mild Constipation Atenolol 25 mg 06/03/18 09:00 Tenormin PO DAILY RISHI Dextrose 50 ml 06/02/18 11:39 D50w Vial IV.PUSH UNSCH PRN PER HYPOGLYCEMIA PROTOCOL Glucagon 1 mg 06/02/18 11:39 Glucagon Inj OTHER PRN PRN for Hypoglycemia Protocol Sodium Chloride 1,000 mls @ 125 mls/hr 06/02/18 11:40 06/02/18 12:00 Ns Inj IV.CONT 125 mls/hr .Q8H RISHI Administration Cefepime HCl 2,000 mg/ Sodium 100 mls @ 200 mls/hr 06/02/18 14:00 06/02/18 14 :16 Chloride IV.SIG Infused Q12H [facility] Infusion Insulin Aspart 0 unit 06/02/18 12:00 06/02/18 18:06 Novolog Insulin Correctional Sugar Inj SQ Not Given ACHS [facility] Protocol Ketorolac Tromethamine 15 mg 06/01/18 20:00 06/02/18 13:44 Toradol Inj IV.PUSH 15 mg Q6H PRN Administration PAIN SCALE 6 TO 10 Morphine Sulfate 4 mg 06/01/18 20:00 Morphine Inj IV.PUSH Q4H PRN BREAKTHROUGH PAIN Nicotine 1 patch 06/02/18 11:45 06/02/18 13:46 Habitrol 21 Mg Patch.24 Hr T-DERMAL Not Given DAILY [facility] Patch Removal 1 each 06/03/18 09:00 Remove Old Patch T-DERMAL DAILY [facility] Sodium Chloride 2 ml 06/01/18 13:33 Ns Flush IV.FLUSH PRN PRN FLUSH AFTER USING IV ACCESS Assessment and Plan - Assessment (1) Obstruction, uropathy Code(s): N13.9 - Obstructive and reflux uropathy, unspecified Status: Acute
[2018-06-02] MEDS ORDERED: fentaNYL Citrate Inj 100 MCG/2 ML Ampul ONE ×2 (20:34)
--- NOTE | 2018-06-02 21:39 | MP ---
cc: Darnell Hastings MD DATE OF OPERATION: 06/02/2018 PREOPERATIVE DIAGNOSIS: Left-sided nephrolithiasis. POSTOPERATIVE DIAGNOSIS: Left-sided nephrolithiasis. SURGEON: Darnell Hastings MD PROCEDURE PERFORMED: 1. Cystoscopy. 2. Left ureteral stent placement. PERTINENT FINDINGS: 1. Successful placement of 6 x 24 double-J ureteral stent on the left. 2. Significant purulent material expressed from the left collecting system upon placement of the stent. 3. Significant pelvic organ prolapse. HISTORY OF PRESENT ILLNESS: Azra Ugarte is a 58-year-old female who was found to have a large obstructing left UPJ stone. She spiked fevers overnight and therefore presents now for placement of left ureteral stent. PROCEDURE IN DETAIL: After proper informed consent was obtained, the patient was brought to the operating room and placed upon the operating table. Bilateral extremity SCDs were in place. The patient was placed under general anesthesia. The patient was placed in lithotomy position and prepped and draped in the standard surgical fashion. After a proper timeout was completed, the rigid cystoscope was inserted into the urethra and bladder. The urethral mucosa was within normal limits without any abnormalities or lesions identified. Upon entering the bladder, bilateral ureteral orifices were identified. There was significant pelvic organ prolapse noted as well. At this point, the left ureteral orifice was identified and cannulated using a guidewire. The wire was advanced up into the left collecting system and it confirmed into the left renal pelvis via fluoroscopy. A stone was also easily visible on fluoroscopic images. At this point, a 6 x 24 double-J ureteral stent was then successfully placed into the left collecting system with good curl in the renal pelvis, as well as in the bladder. Upon placement significant purulent material was expressed coming through the stent and around the stent. At this point, it was decided to place a Adorno catheter for adequate drainage of the bladder. An 18-Portuguese Adorno catheter was placed without difficulty with 10 mL in the balloon. At this point, the patient was awoken from anesthesia and taken to the PACU in good and stable condition. The patient tolerated the procedure well. COMPLICATIONS: None. DISPOSITION: The patient is to be admitted for overnight observation and if she has no fevers and doing well, the Adorno catheter may be removed tomorrow morning and subsequently discharged. She is to follow up with urology in clinic for definitive management regarding her stone and stent. MD LEYLA Medrano/yves , 08:20 PM , 08:27 PM
[2018-06-03] MEDS: Ketorolac Inj 30 MG/ML (IVP) Vial IV.PUSH PRN ×2 (01:47→09:02)
[2018-06-03] MEDS: Sod Chloride 0.9% Inj 1,000 ML IV.CONT SCH ×2 (05:44→13:02)
[2018-06-03 08:06] LABS: Baso % (Auto) 0.2 % (0.0-2.0); Eos % (Auto) 0.3 % (0.0-4.0); Hematocrit 28.8 % (35.0-46.0); Hemoglobin 9.7 gm/dL (11.6-15.3); Lymph # (Auto) 0.5 th/mm3 (1.0-4.8); Lymph % (Auto) 3.5 % (9.0-44.0); Mean Corpuscular HGB Conc 33.5 % (32.0-36.0); Mean Corpuscular Hemoglobin 30.6 pg (27.0-34.0); Mean Corpuscular Volume 91.3 fL (80.0-100.0); Mean Platelet Volume 8.6 fL (7.0-11.0); Mono # (Auto) 0.4 th/mm3 (0.0-0.9); Mono % (Auto) 3.1 % (0.0-8.0); Neut # (Auto) 12.3 th/mm3 (1.8-7.7); Neut % (Auto) 92.9 % (16.0-70.0); Platelet Count 139 th/mm3 (150-450); Red Blood Count 3.16 mil/mm3 (4.00-5.30); White Blood Count 13.3 th/mm3 (4.0-11.0)
[2018-06-03 08:38] LABS: Alanine Aminotransferase 17 U/L (10-53); Albumin 2.2 g/dL (3.4-5.0); Alkaline Phosphatase 90 U/L (45-117); Anion Gap 12 meq/L (5-15); Aspartate Aminotransferase 18 U/L (15-37); Blood Urea Nitrogen 41 mg/dL (7-18); Calcium 7.8 mg/dL (8.5-10.1); Carbon Dioxide 16.8 meq/L (21.0-32.0); Chloride 110 meq/L (98-107); Glomerular Filtration Rate 18 mL/min (>89); Glucose,Random 224 mg/dL (74-106); Potassium 4.1 meq/L (3.5-5.1); Sodium 139 meq/L (136-145); Total Protein 6.5 g/dL (6.4-8.2)
[2018-06-03] MEDS ORDERED: Atenolol 25 MG Tablet PO SCH (09:00)
[2018-06-03] MEDS: Insulin NovoLOG Aspart Correctional Sugar Inj SQ SCH ×2 (09:03→13:02)
--- NOTE | 2018-06-03 09:53 | P.PN ---
Subjective Interval history: Follow-up obstruction, uropathy June 02, 2018-patient seen and examined; she spiked a Temp overnight. Complains of flank pain this AM. Although patient is supposed to be NPO however she did take some PO this Am June 03, 2018-patient seen and examined, she is currently afebrile and denies any left flank pain. She had a left ureteral stent placement yesterday. She is looking forward go home today. Physical Exam Vital signs: Vital Signs 06/02/18 11:51 06/02/18 12:00 06/02/18 16:00 Temperature 98 F 98 F Pulse Rate 74 89 87 Respiratory Rate 30 H 18 Blood Pressure 151/95 H 95/52 L Pulse Oximetry 94 L 94 L 06/02/18 16:18 06/02/18 20:28 06/02/18 20:30 Temperature 98.2 F Pulse Rate 92 H 84 84 Respiratory Rate 14 15 Blood Pressure 153/70 H 144/72 H Pulse Oximetry 97 98 06/02/18 20:45 06/02/18 21:00 06/02/18 21:15 Temperature Pulse Rate 79 77 75 Respiratory Rate 21 16 14 Blood Pressure 151/82 H 146/78 H 152/83 H Pulse Oximetry 95 94 L 95 06/02/18 21:25 06/02/18 21:30 06/03/18 00:00 Temperature 97.6 F 97.6 F Pulse Rate 73 73 73 Respiratory Rate 18 Blood Pressure 153/86 H 159/72 H Pulse Oximetry 94 L 98 06/03/18 04:00 06/03/18 08:00 Temperature 98.9 F 97.6 F Pulse Rate 75 57 L Respiratory Rate 18 16 Blood Pressure 147/94 H 164/77 H Pulse Oximetry 94 L 92 L Intake & Output 06/02/18 06/03/18 06/03/18 18:59 06:59 18:59 Intake Total 100 / 100 2690 / 2690 Output Total 720 / 720 Balance 100 / 100 1969 / 1969 Weight 81.4 kg Intake: IV 100 / 100 2100 / 2100 NS Inj 1,000 ML @ 125 mls/hr IV 1999 / 1999 .CONT .Q8H RISHI Rx#:[id number] Maxipime Inj 2,000 MG In NS Inj 100 / 100 100 / 100 100 ML @ 200 mls/hr IV.SIG Q12H RISHI Rx#:[id number] Oral 290 / 290 Anesthesia Amount 300 / 300 Output: Urine 650 / 650 Urine Amount (Catheter) 70 / 70 Indwelling Urethral Catheter 70 / 70 Narrative: GENERAL: NAD SKIN: Warm and dry. HEAD: Normocephalic. EYES: No scleral icterus. No injection or drainage. NECK: Supple, trachea midline. No JVD or lymphadenopathy. CARDIOVASCULAR: Regular rate and rhythm without murmurs, gallops, or rubs. RESPIRATORY: Breath sounds equal bilaterally. No accessory muscle use. GASTROINTESTINAL: Abdomen soft, non-tender, nondistended. MUSCULOSKELETAL: No cyanosis, or edema. BACK: Nontender without obvious deformity. No CVA tenderness. - Urinary Catheter Management Indwelling Urethral Catheter Cath placed during this visit: yes Reason for continuing: Other continuation reason Insertion date: 06/02/18 Results - Labs CBC & Chem 7: 06/03/18 07:08 06/03/18 07:08 Laboratory Results - last 24 hr 06/02/18 06/02/18 06/02/18 08:54 12:09 15:10 WBC RBC Hgb Hct MCV MCH MCHC RDW Plt Count MPV Neut % (Auto) Lymph % (Auto) [place] % (Auto) Eos % (Auto) Baso % (Auto) Neut # (Auto) Lymph # (Auto) [place] # (Auto) Eos # (Auto) Baso # (Auto) WBC Differential Differential Comment Sodium 139 Potassium 3.9 Chloride 109 H D Carbon Dioxide 20.6 L Anion Gap 9 BUN 34 H Creatinine 2.83 H Estimated GFR 17 L POC Glucose 101 Random Glucose 120 H Lactic Acid 1.2 Calcium 8.2 L D Total Bilirubin AST ALT Alkaline Phosphatase Total Protein Albumin 06/02/18 06/02/18 06/03/18 16:51 20:31 07:08 WBC 13.3 H RBC 3.16 L Hgb 9.7 L Hct 28.8 L MCV 91.3 MCH 30.6 MCHC 33.5 RDW 14.0 Plt Count 139 L MPV 8.6 Neut % (Auto) 92.9 H Lymph % (Auto) 3.5 L [place] % (Auto) 3.1 Eos % (Auto) 0.3 Baso % (Auto) 0.2 Neut # (Auto) 12.3 H Lymph # (Auto) 0.5 L [place] # (Auto) 0.4 Eos # (Auto) 0.0 Baso # (Auto) 0.0 WBC Differential . Differential Comment Auto diff final Sodium Potassium Chloride Carbon Dioxide Anion Gap BUN Creatinine Estimated GFR POC Glucose 116 H 143 H Random Glucose Lactic Acid Calcium Total Bilirubin AST ALT Alkaline Phosphatase Total Protein Albumin 06/03/18 06/03/18 07:08 07:39 WBC RBC Hgb Hct MCV MCH MCHC RDW Plt Count MPV Neut % (Auto) Lymph % (Auto) [place] % (Auto) Eos % (Auto) Baso % (Auto) Neut # (Auto) Lymph # (Auto) [place] # (Auto) Eos # (Auto) Baso # (Auto) WBC Differential Differential Comment Sodium 139 Potassium 4.1 Chloride 110 H Carbon Dioxide 16.8 L Anion Gap 12 BUN 41 H Creatinine 2.67 H Estimated GFR 18 L POC Glucose 246 H Random Glucose 224 H D Lactic Acid Calcium 7.8 L Total Bilirubin 1.5 H AST 18 ALT 17 Alkaline Phosphatase 90 Total Protein 6.5 D Albumin 2.2 L D Microbiology 06/01/18 13:40 Clean Catch Urine Urine Culture - Final No growth in 48 hours - Procedures s/p left ureteral stent placement 06/02/18 Assessment and Plan - Plan 58-year-old female with Nephrolithiasis with hydroureter and ANNE 1.8 cm obstructing stone in the left ureteropelvic junction s/p left ureteral stent placement 06/02/18 Appreciate input from urology Currently on IV cefepime, will discharge home on Cipro 500 mg p.o. twice daily 5 days Discontinue Adorno today Acute kidney injury Post renal due to obstruction from kidney stone Continue with IV fluid hydration and monitor BUN and creatinine Type 2 diabetes Accu-Cheks with sliding scale insulin coverage Diabetic diet History of deep vein thrombosis Patient takes no blood thinners for this She had a stent placed in her left leg that apparently address this in the past h/o hypertension Control pain primarily Currently on atenolol DVT prophylaxis SCD hose, chemoprophylaxis held due to gross hematuria
--- NOTE | 2018-06-03 09:55 | P.DS ---
Date of admission: 06/01/18 15:52 Primary care physician: Dania Gutierrez Anticipated date of discharge: 06/03/18 Brief History from admission: 58-year-old female with a history of hypertension, type 2 diabetes, DVT, dyslipidemia, major depressive disorder presents to the ER after left flank pain , nausea, vomiting became so severe she was unable to tolerate the pain at home. She reports having vague left lower back pain occurring intermittently over the last month. 2 weeks ago she had an episode of nausea and vomiting while on vacation in [place], she went to the ER but they told her it was dehydration and sent her home without checking a urinalysis. 3 days ago she developed onset of fever and worsening of her low back pain. It progressively became worse which led to today's visit to the ER. In the ER workup reveals a 1.8 cm stone in the ureter ureteropelvic junction near the left kidney. She denies any chest pain, shortness of breath, palpitations. She denies any rashes , ecchymosis, jaundice. DS: Summary Hospital Course: While in hospital, patient was treated for: Nephrolithiasis with hydroureter and ANNE 1.8 cm obstructing stone in the left ureteropelvic junction s/p left ureteral stent placement 06/02/18 Appreciate input from urology She was started on IV cefepime as we are initiating workup for sepsis, however she will be discharged home on Cipro 500 mg p.o. twice daily 5 days Adorno was removed prior to discharge Acute kidney injury Post renal due to obstruction from kidney stone She was treated with IV fluid hydration and monitor BUN and creatinine Type 2 diabetes Accu-Cheks with sliding scale insulin coverage Diabetic diet History of deep vein thrombosis Patient takes no blood thinners for this She had a stent placed in her left leg that apparently address this in the past h/o hypertension Control pain primarily She was started on atenolol DVT prophylaxis SCD hose - Time Spent with Patient Total time spent providing and/or coordinating discharge services: Less than 30 minutes - Quality: VTE Deep Vein Thrombosis/Pulmonary Embolism Present on Admission: No Exam Vital signs: Vital Signs 06/02/18 11:51 06/02/18 12:00 06/02/18 16:00 Temperature 98 F 98 F Pulse Rate 74 89 87 Respiratory Rate 30 H 18 Blood Pressure 151/95 H 95/52 L Pulse Oximetry 94 L 94 L 06/02/18 16:18 06/02/18 20:28 06/02/18 20:30 Temperature 98.2 F Pulse Rate 92 H 84 84 Respiratory Rate 14 15 Blood Pressure 153/70 H 144/72 H Pulse Oximetry 97 98 06/02/18 20:45 06/02/18 21:00 06/02/18 21:15 Temperature Pulse Rate 79 77 75 Respiratory Rate 21 16 14 Blood Pressure 151/82 H 146/78 H 152/83 H Pulse Oximetry 95 94 L 95 06/02/18 21:25 06/02/18 21:30 06/03/18 00:00 Temperature 97.6 F 97.6 F Pulse Rate 73 73 73 Respiratory Rate 18 Blood Pressure 153/86 H 159/72 H Pulse Oximetry 94 L 98 06/03/18 04:00 06/03/18 08:00 Temperature 98.9 F 97.6 F Pulse Rate 75 57 L Respiratory Rate 18 16 Blood Pressure 147/94 H 164/77 H Pulse Oximetry 94 L 92 L Intake & Output 06/02/18 06/03/18 06/03/18 18:59 06:59 18:59 Intake Total 100 / 100 2690 / 2690 Output Total 720 / 720 Balance 100 / 100 1969 / 1969 Weight 81.4 kg Intake: IV 100 / 100 2100 / 2100 NS Inj 1,000 ML @ 125 mls/hr IV 1999 / 1999 .CONT .Q8H RISHI Rx#:[id number] Maxipime Inj 2,000 MG In NS Inj 100 / 100 100 / 100 100 ML @ 200 mls/hr IV.SIG Q12H RISHI Rx#:[id number] Oral 290 / 290 Anesthesia Amount 300 / 300 Output: Urine 650 / 650 Urine Amount (Catheter) 70 / 70 Indwelling Urethral Catheter 70 / 70 Narrative: GENERAL: NAD SKIN: Warm and dry. HEAD: Normocephalic. EYES: No scleral icterus. No injection or drainage. NECK: Supple, trachea midline. No JVD or lymphadenopathy. CARDIOVASCULAR: Regular rate and rhythm without murmurs, gallops, or rubs. RESPIRATORY: Breath sounds equal bilaterally. No accessory muscle use. GASTROINTESTINAL: Abdomen soft, non-tender, nondistended. MUSCULOSKELETAL: No cyanosis, or edema. BACK: Nontender without obvious deformity. No CVA tenderness. Results Procedures completed during hospitalization: s/p left ureteral stent placement 06/02/18 Labs on day of discharge: Labs from last 24 hours 06/03/18 06/03/18 06/03/18 07:39 07:08 07:08 WBC 13.3 H RBC 3.16 L Hgb 9.7 L Hct 28.8 L MCV 91.3 MCH 30.6 MCHC 33.5 RDW 14.0 Plt Count 139 L MPV 8.6 Neut % (Auto) 92.9 H Lymph % (Auto) 3.5 L [place] % (Auto) 3.1 Eos % (Auto) 0.3 Baso % (Auto) 0.2 Neut # (Auto) 12.3 H Lymph # (Auto) 0.5 L [place] # (Auto) 0.4 Eos # (Auto) 0.0 Baso # (Auto) 0.0 WBC Differential . Differential Comment Auto diff final Sodium 139 Potassium 4.1 Chloride 110 H Carbon Dioxide 16.8 L Anion Gap 12 BUN 41 H Creatinine 2.67 H Estimated GFR 18 L POC Glucose 246 H Random Glucose 224 H D Lactic Acid Calcium 7.8 L Total Bilirubin 1.5 H AST 18 ALT 17 Alkaline Phosphatase 90 Total Protein 6.5 D Albumin 2.2 L D 06/02/18 06/02/18 06/02/18 20:31 16:51 15:10 WBC RBC Hgb Hct MCV MCH MCHC RDW Plt Count MPV Neut % (Auto) Lymph % (Auto) [place] % (Auto) Eos % (Auto) Baso % (Auto) Neut # (Auto) Lymph # (Auto) [place] # (Auto) Eos # (Auto) Baso # (Auto) WBC Differential Differential Comment Sodium Potassium Chloride Carbon Dioxide Anion Gap BUN Creatinine Estimated GFR POC Glucose 143 H 116 H Random Glucose Lactic Acid 1.2 Calcium Total Bilirubin AST ALT Alkaline Phosphatase Total Protein Albumin 06/02/18 12:09 WBC RBC Hgb Hct MCV MCH MCHC RDW Plt Count MPV Neut % (Auto) Lymph % (Auto) [place] % (Auto) Eos % (Auto) Baso % (Auto) Neut # (Auto) Lymph # (Auto) [place] # (Auto) Eos # (Auto) Baso # (Auto) WBC Differential Differential Comment Sodium Potassium Chloride Carbon Dioxide Anion Gap BUN Creatinine Estimated GFR POC Glucose 101 Random Glucose Lactic Acid Calcium Total Bilirubin AST ALT Alkaline Phosphatase Total Protein Albumin - Impressions ITS Impressions Abdomen/Pelvis CT 06/01/18 13:33 CONCLUSION: Slightly less than 2 cm stone in the left ureteropelvic junction with moderate left hydronephrosis. Smaller stones elsewhere in the left kidney. Discharge Plan - Discharge Disposition Patient Disposition: 01 Discharge Home - Discharge Condition Condition: Good - Discharge Order Discharge Orders: Discharge Order (Routine); Ordered 06/03/18 Ordered By: Cuco Hadley - Discharge Details Anticipated Discharge Date: 06/03/18 - Physicians Team Attending Provider: Cuco Hadley Other Providers: Darnell Hastings MD
--- NOTE | 2018-06-03 12:26 | P.PNURO ---
Subjective Patient symptoms today: Patient doing well this am, no pain. No fevers. Objective Vital Signs: Vital Signs 06/02/18 16:00 06/02/18 16:18 06/02/18 20:28 Temperature 98 F 98.2 F Pulse Rate 87 92 H 84 Respiratory Rate 18 14 Blood Pressure 95/52 L 153/70 H Pulse Oximetry 94 L 97 06/02/18 20:30 06/02/18 20:45 06/02/18 21:00 Temperature Pulse Rate 84 79 77 Respiratory Rate 15 21 16 Blood Pressure 144/72 H 151/82 H 146/78 H Pulse Oximetry 98 95 94 L 06/02/18 21:15 06/02/18 21:25 06/02/18 21:30 Temperature 97.6 F Pulse Rate 75 73 73 Respiratory Rate 14 Blood Pressure 152/83 H 153/86 H Pulse Oximetry 95 94 L 06/03/18 00:00 06/03/18 04:00 06/03/18 08:00 Temperature 97.6 F 98.9 F 97.6 F Pulse Rate 73 75 60 Respiratory Rate 18 18 16 Blood Pressure 159/72 H 147/94 H 164/77 H Pulse Oximetry 98 94 L 92 L Intake & Output 06/02/18 06/03/18 06/03/18 18:59 06:59 18:59 Intake Total 100 / 100 2690 / 2690 Output Total 720 / 720 Balance 100 / 100 1969 / 1969 Weight 81.4 kg Intake: IV 100 / 100 2100 / 2100 NS Inj 1,000 ML @ 125 mls/hr IV 1999 / 1999 .CONT .Q8H RISHI Rx#:[id number] Maxipime Inj 2,000 MG In NS Inj 100 / 100 100 / 100 100 ML @ 200 mls/hr IV.SIG Q12H RISHI Rx#:[id number] Oral 290 / 290 Anesthesia Amount 300 / 300 Output: Urine 650 / 650 Urine Amount (Catheter) 70 / 70 Indwelling Urethral Catheter 70 / 70 Result Diagrams: 06/03/18 07:08 06/03/18 07:08 Medications and IVs: Active Medications Generic Name Dose Route Start Last Admin Trade Name Freq PRN Reason Stop Dose Admin Acetaminophen 650 mg 06/01/18 20:00 06/02/18 04:10 Tylenol PO 650 mg Q4H PRN Administration Temp > 100.4 Al Hydroxide/Mg Hydroxide 30 ml 06/01/18 20:00 Milk Of [place] Liq PO Q12H PRN Mild Constipation Atenolol 25 mg 06/03/18 09:00 06/03/18 09:02 Tenormin PO 25 mg DAILY RISHI Administration Dextrose 50 ml 06/02/18 11:39 D50w Vial IV.PUSH UNSCH PRN PER HYPOGLYCEMIA PROTOCOL Glucagon 1 mg 06/02/18 11:39 Glucagon Inj OTHER PRN PRN for Hypoglycemia Protocol Sodium Chloride 1,000 mls @ 125 mls/hr 06/02/18 11:40 06/03/18 05:44 Ns Inj IV.CONT 125 mls/hr .Q8H RISHI Administration Cefepime HCl 2,000 mg/ Sodium 100 mls @ 200 mls/hr 06/02/18 14:00 06/03/18 02 :20 Chloride IV.SIG Infused Q12H RISHI Infusion Insulin Aspart 0 unit 06/02/18 12:00 06/03/18 09:03 Novolog Insulin Correctional Sugar Inj SQ 4 unit ACHS RISHI Administration Protocol Ketorolac Tromethamine 15 mg 06/01/18 20:00 06/03/18 09:02 Toradol Inj IV.PUSH 15 mg Q6H PRN Administration PAIN SCALE 6 TO 10 Miscellaneous Information 1 each 06/02/18 20:30 Misc Nursing Information OTHER 06/03/18 20:29 UNSCH PRN SEE LABEL COMMENTS Morphine Sulfate 4 mg 06/01/18 20:00 Morphine Inj IV.PUSH Q4H PRN BREAKTHROUGH PAIN Nicotine 1 patch 06/02/18 11:45 06/03/18 09:02 Habitrol 21 Mg Patch.24 Hr T-DERMAL Not Given DAILY RISHI Patch Removal 1 each 06/03/18 09:00 06/03/18 09:01 Remove Old Patch T-DERMAL Not Given DAILY [facility] Sodium Chloride 2 ml 06/01/18 13:33 Ns Flush IV.FLUSH PRN PRN FLUSH AFTER USING IV ACCESS Objective Remarks: NAD, AAOx3 Resp NL Ab S/NT Assessment and Plan - Assessment (1) Obstruction, uropathy Code(s): N13.9 - Obstructive and reflux uropathy, unspecified Status: Acute - Plan -Doing well s/p left ureteral stent placement -Discharge with abx and followup in Urology clinic in 1-2 weeks. -Please call with questions
== END 2018-06-03 13:18 | disposition home or self-care (01) ==
LOC: PHED 12:30 → PHEDA 15:52 → N04 18:15
PROVIDERS: ADMIT Hospitalist; ATTEND Hospitalist